=== PATIENT | female | born 1985 ===

== ENCOUNTER 2020-05-31 10:23 | Outpatient (CLI) | payer OTHER ==
[~2020-05-31 10:23] MED LIST: GILTUSS LIQUID237 M1 PO; PROVENTIL3 ML/2.5 M IH
== END 2020-05-31 10:30 | disposition home or self-care (01) ==
LOC: RX STUDY 10:23
PROVIDERS: ATTEND Specialist
DX: N85.6 Intrauterine synechiae (principal)